=== PATIENT | male | born 2000 | race Caucasian/White ===

== ENCOUNTER 2021-11-25 19:41 | Emergency (ER) | payer OTHER ==
[2021-11-25 21:50] LABS: BASOPHIL 0.4 % (0-2); EOSINOPHIL 1.3 % (0-5); HCT 44.7 % (42.0-52.0); HGB 15.1 g/dl (13.2-18.0); LYMPHOCYTE 11.6 % (15-48); MCH 29.3 pg (25.0-31.0); MCHC 33.8 g/dL (32.0-36.0); MCV 86.6 fL (78.0-100.0); MONOCYTE 9.7 % (0-12); MPV 8.8 fL (6.0-9.5); NEUTROPHIL 76.5 % (41-80); NRBC 0; PLT 295 K/uL (150-400); RBC 5.16 M/uL (4.70-6.00); RDW 12.2 % (11.5-14.0); WBC 13.8 K/uL (4.0-10.5)
[2021-11-25 22:21] LABS: ALBUMIN 4.2 g/dL (3.4-5.0); ALKALINE PHOSHATASE 67 U/L (46-116); ALT 23 U/L (16-63); AST 24 U/L (15-37); BILIRUBIN - TOTAL 0.7 mg/dL (0.2-1.0); BUN 8 mg/dL (7-18); BUN/CREAT RATIO (CALC) 8.9 RATIO; CHLORIDE 100 mmol/L (98-107); CO2 (BICARBONATE) 26 mmol/L (21-32); GLOBULIN (CALCULATION) 2.8 g/dL; GLUCOSE 91 mg/dL (74-106); LIPASE <10 U/L (73-393); POTASSIUM 3.8 mmol/L (3.5-5.1)
== END 2021-11-25 23:05 | disposition home or self-care (01) ==
LOC: FER 19:41
PROVIDERS: Emergency Medicine Emergency Medical Services
DX: S60.511A Abrasion of right hand, initial encounter (principal); Z23 Encounter for immunization; V49.9XXA Car occupant (driver) (passenger) injured in unspecified traffic accident, initial encounter
CPT/HCPCS: 36415; 71046; 72040; 72072; 72100; 73130; 80053; 83690; 85025; 90715